=== PATIENT | male | born 1975 | race Caucasian/White ===

== ENCOUNTER → 2021-10-16 14:37 | Outpatient (CLI) | payer OTHER, SELFPAY ==
--- NOTE | ~2021-10-16 | CT_ITS ---
EXAMINATION: CT abdomen pelvis wo con DATE: 10/16/2021 14:51 INDICATION: Hematuria; visible hematuria after running. TECHNIQUE: Computed tomography (CT) of the abdomen and pelvis was performed without intravenous contr ast. Automated exposure control and iterative reconstruction technique were employed. Exam dose: 453 .29 mGy-cm total exam DLP. COMPARISON: None. FINDINGS: The lung bases are clear. Fat-containing foramen of Bochdalek hernia on the right. Normal heart size. No pericardial or pleural effusion. Very small sliding hiatal hernia. The gallbladder is contracted. No hepatic, splenic, pancreatic or adrenal space-occupying mass lesion is evident. Multiple bilateral renal calculi. There are at least 2 prominent right renal pelvic calculi, measurin g up to 5.2 x 7.8 and 8 x 13 mm. There is moderately prominent right hydronephrosis as a result. Prostate enlargement and calcifications. The urinary bladder is unremarkable. Normal caliber of the abdominal aorta. No intraperitoneal or retroperitoneal or pelvic mass lesion or adenopathy or ascites. There is a prominent of fecal material throughout the rectum and colon. No bowel obstruction or intra peritoneal free air. The appendix appears normal. Prominent degenerative disc disease at L5-S1. Degenerative changes and Schmorl's nodes of the lower t horacic spine. No suspicious osteolytic or osteoblastic lesions are noted. IMPRESSION: Prominent right renal pelvic calculi and moderately prominent right hydronephrosis as a result Prominent bilateral renal nephrolithiasis Reviewed, dictated and finalized at [facility]. Reviewed, dictated and finalized at location A. IMPRESSION: Prominent right renal pelvic calculi and moderately prominent righ t hydronephrosis as a result Prominent bilateral renal nephrolithiasis
== END ==
PROVIDERS: PCP Family Medicine; Visit Provider Family Medicine
DX: R31.9 Hematuria, unspecified (principal); N20.0 Calculus of kidney; N13.30 Unspecified hydronephrosis
CPT/HCPCS: 74176

== ENCOUNTER 2021-10-29 12:01 | Outpatient (CLI) | payer OTHER, SELFPAY ==
--- NOTE | ~2021-10-29 | XR_ITS ---
XR abdomen/kub 1V 10/29/2021 12:23 Indication: Renal stones Procedure: KUB Comparison: No prior studies for comparison. Findings: There are multiple bilateral renal stones. Kidneys are obscured by overlying bowel content. Moderate colonic fecal loading. There are pelvic phleboliths. Nonobstructive bowel gas pattern. No a cute osseous abnormality. Impression: 1: Bilateral nephrolithiasis. Reviewed, dictated and finalized at location A. Impression: 1: Bilateral nephrolithiasis.
== END 2021-10-29 12:02 | disposition home or self-care (01) ==
PROVIDERS: PCP Family Medicine; Visit Provider Urology
DX: N20.0 Calculus of kidney (principal)
CPT/HCPCS: 74018

== ENCOUNTER 2021-10-31 11:16 | Outpatient (CLI) | payer OTHER, SELFPAY ==
--- NOTE | ~2021-10-31 | XR_ITS ---
XR abdomen/kub 1V 10/31/2021 11:40 Indication: Calcium renal stones Procedure: KUB Comparison: 10/29/2021 Findings: There are multiple bilateral renal stones. Bowel gas pattern is nonobstructive. There are p elvic phleboliths. Nonobstructive bowel gas pattern. Lung bases are unremarkable. Impression: 1: Bilateral nephrolithiasis, largest likely in the right renal pelvis measuring 1 cm. Reviewed, dictated and finalized at location A. Impression: 1: Bilateral nephrolithiasis, largest likely in the right renal pelvis measurin g 1 cm.
== END 2021-10-31 11:17 | disposition home or self-care (01) ==
PROVIDERS: PCP Family Medicine; Visit Provider Urology
DX: N20.0 Calculus of kidney (principal)
CPT/HCPCS: 74018

== ENCOUNTER 2021-11-03 13:20 | Outpatient (CLI) | payer OTHER, SELFPAY ==
[2021-11-03 14:23] LABS: Partial Thromboplastin Time 26.4 SECONDS (22.3-36.8); Prothrombin Time 12.6 Seconds (11.1-14.7)
== END 2021-11-03 13:21 | disposition home or self-care (01) ==
LOC: ANHSURGERY 13:27
PROVIDERS: PCP Family Medicine; Visit Provider Urology
DX: Z01.812 Encounter for preprocedural laboratory examination (principal); N20.0 Calculus of kidney
CPT/HCPCS: 36415; 85610; 85730; 87086

== ENCOUNTER 2021-11-06 01:15 | Day surgery (SDC) | payer OTHER, SELFPAY ==
[2021-11-02 15:08] VITALS: BMI 23.7
--- NOTE | 2021-11-02 15:21 | PC.NURSE ---
Report to the Outpatient Waiting Room, entrance under the green pavilion located off [facility], at time 11:30 on date 11/06/21. OR Time: 1:30. Time changes happen often and if your time is changed the preop area will call you the afternoon before. - You and your visitor will be asked to self-screen and do not enter if you have any COVID symptoms. - Only one visitor and NO children visitors are allowed at this time. - The patient visitor is requested to leave or wait in car when not with patient due to restrictions. - A mask is required within the hospital. Patients may have clear liquids (water, carbonated beverages, clear teas, apple juice) until 3 hours prior to surgery (10:30) with a maximum of 20 ounces. - No food from midnight until time of surgery Take the following medications with a SIP of water the morning of surgery: ESCITALOPRAM Medications to discontinue per physician: VITAMINS/SUPPLEMENTS Date to take last dose: 11/02/21 Please no make-up, nail comoran, hairspray, perfume, deodorant, or body powder the day of surgery. No jewelry (including any body piercings) or valuables the day of surgery, leave them at home. Please take a shower or bath the night before, or the morning of, surgery with an antibacterial soap. Wear comfortable, loose fitting clothing. - Jewelry must be removed prior to entering the operating room. Rings and piercings that are not removed may be cut off. - The hospital will not accept responsibility for valuables. - Please leave all valuables, including medications, at home the day of surgery. If you are going home after surgery, a licensed seasonal driver must drive you home. - NO public transportation without another adult. - We recommend that an adult stay with you for 24 hours following discharge. - We also recommend that you do not drive, make important decision, drink alcoholic beverages, or take any drugs that were not prescribed by your health care provider for at least 24 hours after your discharge time. Follow any additional instructions given to you from your surgeon. If you or anyone in your household have experienced Covid symptoms in the past week, please notify your surgeon or the nurse liaison at the phone number below for possible testing. Telephone instructions given to PT - RAYO AVELAR and asked if any additional questions and then verbalized understanding. Patient advised to call surgeon office or pre surgery nurse liaison [phone] if any additional questions.
--- NOTE | 2021-11-05 15:35 | P.PNAN_ITS ---
Anes - Initial Pre Proc Eval Procedure: Operation Date: 11/06/21 12:30 Proposed Procedures p Right Extracorporeal Shock Wave Lithotripsy, - Westley Restrepo MD s Cystoscopy, Right Retrograde Pyelogram, Right Stent Placement - Westley Restrepo MD Date/Time: 11/05/21 15:35 Surgeon: Westley Restrepo MD Pre Op Diagnosis: hematuria, right UPJ calculus Patient Data Age: 46 Gender: M Height: 1.83 m Weight: 79.38 kg Allergies Allergy/AdvReac Type Severity Reaction Status Date / Time No Known Allergies Allergy Verified 11/02/21 15:07 Home Medications Medication Instructions Recorded Confirmed Type Lactobacillus rhamnosus GG 20 20 cell PO DAILY 10/06/21 11/02/21 History billion cell capsule (Probiotic Digestive Care) omega-3 fatty acids-fish oil 360 1 cap PO DAILY 10/06/21 11/02/21 History mg-1,200 mg capsule (Fish Oil) escitalopram oxalate 20 mg tablet 20 mg PO DAILY #30 tabs 11/02/21 11/02/21 Rx Patient hx anesthesia problems: none Family hx anesthesia problems: none Results Review: All pre-operative results and documents have been reviewed as part of the pre- operative evaluation. [facility] Past Medical History Medical History (Updated 10/16/21 @ 17:13 by Nicki Kapoor NP) Anemia Anxiety History of blood donation Nephrolithiasis Tibia/fibula fracture, shaft Surgical History Surgical History S/P ORIF (open reduction internal fixation) fracture Family History Family History Father Hypertension Depression Anxiety Mother Anxiety Depression Thyroid disorder Social History Social History Social History: Smoking status: Never smoker Second hand tobacco smoke exposure: No Alcohol intake: never Substance use: never Substance use type: does not use Living arrangements: with 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 Gender identity (if verbalized by the patient): Male Sexual Orientation (if Verbalized by the Patient): Straight or Heterosexual Spiritual care concerns: No Anes - Eval Final PreProcedure Day of Procedure 11/05/21 15:35 Patient weight: overweight Heart: regular rate and rhythm Lungs: clear to auscultation and normal air movement Airway: Mallampati scale class II Neurological: alert and oriented Last oral intake: >/= 8 hours ASA classification: II Emergent: no Anesthetic plan: proceed Anesthesia type and monitoring: general LMA Results Review: All pre-operative results and documents have been reviewed as part of the pre- operative evaluation. Informed Consent: The patient's anesthetic plan and its attendant risks and benefits were discussed with the patient/family/POA. Questions were solicited and answers provided to the satisfaction of the patient/family/POA.
[2021-11-06] VITALS (7 sets, daily range): BP systolic 97–154; BP diastolic 48–78; PULSE 48–72; RESP 11–18; TEMP 36.2–36.9; O2SAT 100
--- NOTE | ~2021-11-06 | XR_ITS ---
EXAMINATION: XR abdomen/kub 1V INDICATION: Right-sided lithotripsy TECHNIQUE: Supine views of the abdomen were obtained on 2 radiographs. COMPARISON: 10/31/2021 FINDINGS: There is a 10 mm stone projecting in the expected location of the right renal pelvis. Stone s measuring 11 mm and 10 mm are present in the right kidney. There are at least four stones of the le ft kidney which measure up to 6 mm. There are phleboliths of the pelvis. The bowel gas pattern is nor mal. The visualized lung bases are clear. IMPRESSION: 1. 10 mm stone projecting in the expected location of the right renal pelvis. 2. Bilateral nephrolithiasis. Reviewed, dictated and finalized at location A.
[2021-11-06] MEDS: LACTATED RINGERS 1,000 ML 30 ML IV CONT ×2 (10:38→12:40)
--- NOTE | 2021-11-06 11:04 | WPDHPUPDATE1 ---
History and Physical Update Update Date/Time: 11/06/21 11:04 History and Physical has been reviewed, including an updated exam of the patient. There are NO changes in the patient's condition. Risks, benefits, and alternatives have been discussed and questions answered. Patient agrees to proceed with procedure. Proceed with cystoscopy, right retrograde pyelogram, right ureteral stent placement, right renal lithotripsy
[2021-11-06] MEDS: ceFAZolin 2 GM/D5W 50 ML 2 GM/50 ML BAG IVPB (11:27)
--- NOTE | 2021-11-06 12:37 | W.PM.PROC2 ---
Procedure Note - Detailed Date of Procedure 11/06/21 Pre-op Diagnosis hematuria, right UPJ calculus Post-op Diagnosis Same Procedure Performed Cystoscopy, right retrograde pyelogram, right ureteral stent placement 4.8 Guatemalan contour, ESWL right renal UPJ calculus Surgeon Westley Restrepo MD Anesthesia General Description of Procedure Patient was taken to the operative suite correctly identified. Once anesthesia was obtained he was prepped draped usual sterile fashion. Sixteen Guatemalan flexible scope inserted into the urethra. There are no urethral strictures. The bladder is inspected there was no tumors noted. The right ureteral orifice was cannulated with a guidewire. It was difficult to get this wire past the stone and thus we repositioned the patient and did a lithotripsy of the stone. The stone was localized in both planes. Two thousand five hundred shocks were given to the stone. The wire was then advanced into the renal pelvis and a pyelogram was confirmed to confirm its placement. 4.8 Guatemalan contour stent was then placed with the proximal end in the renal pelvis distal in the bladder. 2% viscous lidocaine was inserted into the urethra patient is taken recovery room stable condition. He will follow-up in 7-10 days with KUB. Estimated Blood Loss 0 Drains Yes Packing No Pathology None sent Complications No immediate complications Condition Stable Disposition PACU
== END 2021-11-06 14:20 | disposition home or self-care (01) ==
PROVIDERS: PCP Family Medicine; Visit Provider Urology
PROC: (CPT 50590; principal; 2021-11-06 12:30)
PROC: (CPT 52352; 2021-11-06 12:30)
DX: N20.1 Calculus of ureter (principal); R31.9 Hematuria, unspecified
CPT/HCPCS: 52356; 74018; A9270; C1769; C2617; J0690; J1100; J2250; J2405; J2704; J3010; J7030; J7120

== ENCOUNTER 2021-11-21 08:35 | Outpatient (CLI) | payer OTHER, SELFPAY ==
--- NOTE | ~2021-11-21 | XR_ITS ---
EXAM: XR abdomen/kub 1V DATE: 11/21/2021 08:56 HISTORY: calcium kidney stone . COMPARISON: 11/06/2021. FINDINGS: Right ureteral stent in good position. Clear lung bases. Normal bowel gas pattern. No orga nomegaly. 10 mm right renal pelvis stone likely projects over the midline bladder. Remaining left and right nephroliths are grossly unchanged. Multiple. Regional bones and soft tissues normal for age. IMPRESSION: The right renal pelvis stone appears to have passed into the bladder. Reviewed, dictated and finalized at location K. IMPRESSION: The right renal pelvis stone appears to have passed into the bladde r.
== END 2021-11-21 08:36 | disposition home or self-care (01) ==
PROVIDERS: PCP Family Medicine; Visit Provider Urology
DX: N20.0 Calculus of kidney (principal)
CPT/HCPCS: 74018

== ENCOUNTER 2021-12-02 07:59 | Outpatient (CLI) | payer OTHER, SELFPAY ==
[2021-12-02 09:23] LABS: Prothrombin Time 12.7 Seconds (11.1-14.7)
[2021-12-02 09:24] LABS: Partial Thromboplastin Time 26.8 SECONDS (22.3-36.8)
== END 2021-12-02 08:00 | disposition home or self-care (01) ==
LOC: ANHSURGERY 08:03
PROVIDERS: PCP Family Medicine; Visit Provider Urology
DX: N20.0 Calculus of kidney (principal); Z01.818 Encounter for other preprocedural examination
CPT/HCPCS: 36415; 85610; 85730; 87086

== ENCOUNTER 2021-12-04 01:05 | Day surgery (SDC) | payer OTHER, SELFPAY ==
[2021-12-01 12:28] VITALS: BMI 23.6
--- NOTE | 2021-12-01 12:29 | PC.NURSE ---
Report to the Outpatient Waiting Room, entrance under the green pavilion located off [facility], at time 7:00 on date 12/04/21. Planned Procedure Time: 9:00. Time changes happen often and if your time is changed the preop area will call you the afternoon before. - You and your visitor will be asked to self-screen and do not enter if you have any COVID symptoms. - We encourage only one visitor and NO visitors under age 16 are allowed at this time. Your visitor will receive communication by the phone number that is given day of service. - The patient visitor is requested to social distance or may leave the building when not with patient due to restrictions. - A mask is OPTIONAL within the hospital. Patients may have clear liquids (water, carbonated beverages, clear teas, apple juice) until 3 hours prior to surgery (6:00) with a maximum of 20 ounces. - No food from midnight until time of surgery Take the following medications with a SIP of water the morning of surgery: ESCITALOPRAM Medications to discontinue per physician: VITAMINS/SUPPLEMENTS Date to take last dose: 12/01/21 Please no make-up, nail kiswahili, hairspray, perfume, deodorant, or body powder the day of surgery. No jewelry (including any body piercings) or valuables the day of surgery, leave them at home. Please take a shower or bath the night before, or the morning of, surgery with an antibacterial soap. Wear comfortable, loose fitting clothing. - Jewelry must be removed prior to entering the operating room. Rings and piercings that are not removed may be cut off. - The hospital will not accept responsibility for valuables. - Please leave all valuables, including medications, at home the day of surgery. If you are going home after surgery, a licensed bellman driver must drive you home. - NO public transportation without another adult. - We recommend that an adult stay with you for 24 hours following discharge. - We also recommend that you do not drive, make important decision, drink alcoholic beverages, or take any drugs that were not prescribed by your health care provider for at least 24 hours after your discharge time. Follow any additional instructions given to you from your surgeon. If you or anyone in your household have experienced Covid symptoms in the past week, please notify your surgeon or the nurse liaison at the phone number below for possible testing. Telephone instructions given to PT Vanesa AVELAR and asked if any additional questions and then verbalized understanding. Patient advised to call surgeon office or pre surgery nurse liaison [phone] if any additional questions.
--- NOTE | ~2021-12-04 | XR_ITS ---
EXAMINATION: XR abdomen/kub 1V DATE: 12/04/2021 07:08 INDICATION: Right-sided nephrolithiasis for planned lithotripsy. TECHNIQUE: A supine view of the abdomen on 2 radiographs was obtained. COMPARISON: 11/21/2021 FINDINGS: Unchanged right internal ureteral stent with formed loop projecting over the bladder and upper pole c [place] of the right kidney. Clusters of several stones measuring up to 7 mm projecting over the lower p ole of the right kidney. There are also several stones measuring up to 6 mm projecting over the upper , mid and lower left kidney. A few phleboliths in the pelvis. No stones seen along the course of the ureters. Normal bowel gas pattern. Lung bases are clear. Heart size is normal. IMPRESSION: 1. Bilateral nephrolithiasis with right internal ureteral stents in expected position. Reviewed, dictated and finalized at location A. IMPRESSION: 1. Bilateral nephrolithiasis with right internal ureteral stents in expected po sition.
--- NOTE | 2021-12-04 07:25 | WPDHPUPDATE1 ---
History and Physical Update Update Date/Time: 12/04/21 07:25 History and Physical has been reviewed, including an updated exam of the patient. There are NO changes in the patient's condition. Risks, benefits, and alternatives have been discussed and questions answered. Patient agrees to proceed with procedure. Proceed with eswl of right renal calculus, possible cysto with stent exchange
--- NOTE | 2021-12-04 07:30 | WPDHPUPDATE1 ---
History and Physical Update Update Date/Time: 12/04/21 07:30 History and Physical has been reviewed, including an updated exam of the patient. There are NO changes in the patient's condition. Risks, benefits, and alternatives have been discussed and questions answered. Patient agrees to proceed with procedure. eswl right renal calculus, possible cysto, stent removal , stent exchange.
--- NOTE | 2021-12-04 07:40 | WPDANESEPPF ---
Anes - Initial Pre Proc Eval Procedure: Operation Date: 12/04/21 09:00 Proposed Procedures p Right Extracorporeal Shock Wave Lithotripsy, - Westley Restrepo MD s Cystoscopy, Right Ureteral Stent Removal, with Possible Right Retrograde Pyelogram, Stent Exchange - Westley Restrepo MD Date/Time: 12/04/21 07:40 Surgeon: Westley Restrepo MD Pre Op Diagnosis: kidney stones Patient Data Age: 46 Gender: M Height: 1.83 m Weight: 79 kg Allergies Allergy/AdvReac Type Severity Reaction Status Date / Time No Known Allergies Allergy Verified 12/01/21 12:27 Home Medications Medication Instructions Recorded Confirmed Type Lactobacillus rhamnosus GG 20 20 cell PO DAILY 10/06/21 12/01/21 History billion cell capsule (Probiotic Digestive Care) omega-3 fatty acids-fish oil 360 1 cap PO DAILY 10/06/21 12/01/21 History mg-1,200 mg capsule (Fish Oil) escitalopram oxalate 20 mg tablet 20 mg PO DAILY #30 tabs 11/02/21 12/01/21 Rx Patient hx anesthesia problems: none Family hx anesthesia problems: none Results Review: All pre-operative results and documents have been reviewed as part of the pre-operative evaluation. 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 arrangements: with 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 Gender identity (if verbalized by the patient): Male Sexual Orientation (if Verbalized by the Patient): Straight or Heterosexual Spiritual care concerns: No Anes - Eval Final PreProcedure Day of Procedure 12/04/21 07:40 Patient weight: normal Heart: regular rate and rhythm Lungs: clear to auscultation Airway: Mallampati scale class II Neurological: alert and oriented Last oral intake: >/= 8 hours ASA classification: II Emergent: no Anesthetic plan: proceed Anesthesia type and monitoring: general LMA and standard monitoring Results Review: All pre-operative results and documents have been reviewed as part of the pre-operative evaluation. Informed Consent: The patient's anesthetic plan and its attendant risks and benefits were discussed with the patient/family/POA. Questions were solicited and answers provided to the satisfaction of the patient/family/POA.
[2021-12-04 07:44] VITALS: BP 138/63; PULSE 68; RESP 14; TEMP 36.6; O2SAT 100
[2021-12-04] MEDS: LACTATED RINGERS 1,000 ML 30 ML IV CONT ×2 (07:48→09:41)
[2021-12-04] MEDS: ceFAZolin 2 GM/D5W 50 ML 2 GM/50 ML BAG IVPB (08:33)
[2021-12-04] MEDS: LIDOCAINE HCL 2% GEL UROJET 10 ML PKG MUCOUS MEM (09:25)
--- NOTE | 2021-12-04 09:33 | P.OP_ITS ---
Procedure Note - Detailed Date of Procedure 12/04/21 Pre-op Diagnosis kidney stones Post-op Diagnosis Same Procedure Performed Cystoscopy, right ureteral stent exchange, ESWL right renal calculi Surgeon Westley Restrepo MD Anesthesia General Description of Procedure Patient is taken to the operative suite correctly identified. Once anesthesia was obtained he was prepped draped usual sterile fashion. Sixteen Tunisian flexible scope was inserted the meatus. It was introduced into the bladder without difficulty. The stent was grasped brought out the meatus. A guidewire was placed through the stent. 4.8 Tunisian contour stent was then placed with the proximal end up in the upper pole and the distal in the bladder. 2% viscous lidocaine was inserted urethra. Patient was repositioned. Two thousand five hundred shocks were given to the renal calculi. Tolerated procedure well was taken recovery stable condition. He will follow-up in 7-10 days with KUB. Estimated Blood Loss 0 Drains Yes Packing No Pathology None sent Complications No immediate complications Condition Stable Disposition PACU
[2021-12-04 09:41] VITALS: BP 101/61; PULSE 71; RESP 9; TEMP 36.2; O2SAT 98
[2021-12-04 09:55] VITALS: BP 129/74; PULSE 66; RESP 7; O2SAT 100
[2021-12-04 10:10] VITALS: BP 126/73; PULSE 76; RESP 17; O2SAT 100
[2021-12-04 10:19] VITALS: BP 127/86; BP 134/71; PULSE 66; PULSE 72; RESP 12; O2SAT 100
[2021-12-04 10:45] VITALS: BP 133/67; PULSE 64; RESP 12
== END 2021-12-04 11:08 | disposition home or self-care (01) ==
PROVIDERS: PCP Family Medicine; Visit Provider Urology
PROC: (CPT 50590; principal; 2021-12-04 09:00)
PROC: (CPT 52352; 2021-12-04 09:00)
DX: N20.0 Calculus of kidney (principal); F41.9 Anxiety disorder, unspecified
CPT/HCPCS: 52332; 50590; 74018; A9270; C1769; C2617; J0690; J1100; J2250; J2405; J2704; J3010; J7120

== ENCOUNTER 2021-12-19 09:01 | Outpatient (CLI) | payer OTHER, SELFPAY ==
--- NOTE | ~2021-12-19 | XR_ITS ---
XR abdomen/kub 1V DATE: 12/19/2021 09:22 INDICATION: Calcium kidney stone TECHNIQUE: AP projection, 2 views COMPARISON: 11/26/2021 KUB FINDINGS: Right internal urinary stent is present, the proximal pigtail overlying the mid right kidne y as opposed to the upper pole collecting system on 12/04/2021. The distal pigtail overlies the right side of the urinary bladder. Numerous bilateral kidney stones are noted. No definite ureteral calcified stones are identified. Nonspecific bowel gas pattern without evidence of obstruction. The psoas shadows are intact. IMPRESSION: Right internal urinary stent Bilateral nephrolithiasis Reviewed, dictated and finalized at Location A. Reviewed, dictated and finalized at location A. [employer]TENANCE
== END 2021-12-19 09:02 | disposition home or self-care (01) ==
LOC: ANHIMG 09:03
PROVIDERS: PCP Family Medicine; Visit Provider Urology
DX: N20.0 Calculus of kidney (principal); Z96.0 Presence of urogenital implants
CPT/HCPCS: 74018

== ENCOUNTER → 2022-01-04 09:32 | Outpatient (CLI) | payer OTHER, SELFPAY ==
--- NOTE | ~2022-01-04 | CT_ITS ---
EXAMINATION: CT abdomen pelvis wo con DATE: 01/04/2022 09:53 INDICATION: Renal stones TECHNIQUE: Computed tomography (CT) of the abdomen and pelvis was performed without intravenous contr ast. The dose-length product was 214.84 mGy-cm. Automated exposure control and iterative reconstructi on technique were employed. COMPARISON: CT dated 10/16/2021. FINDINGS: Lung bases are unremarkable. Heart size is normal. No significant pleural or pericardial ef fusion. No significant vascular abnormality. No lymphadenopathy. There is a right internal ureteral s tent in expected position. There are multiple bilateral renal stones. No significant hydronephrosis. Bladder is unremarkable. There are pelvic phleboliths. There are 2 small hypodensities of the liver measuring 6 mm or less. These are too small to character ize, although statistically likely benign in the absence of known malignancy. The spleen, pancreas, a drenal glands are unremarkable. Gallbladder is contracted. Nonobstructive bowel pattern. Moderate col onic fecal loading. No suspicious lytic or blastic lesions. There is mild-moderate lower thoracic and lower lumbar spondylosis. IMPRESSION: 1. Nonobstructing bilateral nephrolithiasis. Right internal ureteral stent in expected position. No h ydronephrosis. Reviewed, dictated and finalized at location A. R FEEDER IMPRESSION: 1. Nonobstructing bilateral nephrolithiasis. Right internal ureteral stent in e xpected position. No hydronephrosis.
== END ==
PROVIDERS: PCP Family Medicine; Visit Provider Urology
DX: N20.0 Calculus of kidney (principal)
CPT/HCPCS: 74176

== ENCOUNTER 2022-01-11 00:24 | Day surgery (SDC) | payer OTHER, SELFPAY ==
[2021-12-25 13:38] VITALS: BMI 23.8
[2022-01-11 07:29] VITALS: BP 106/64; PULSE 60; RESP 18; TEMP 36.6; O2SAT 100
[2022-01-11] MEDS: LACTATED RINGERS 1,000 ML 150 ML IV CONT (07:41)
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
--- NOTE | 2022-01-11 08:09 | PM.HPGS ---
History of Present Illness History of Present Illness Consent: Risks, benefits, and alternatives have been discussed and questions answered. Patient agrees to proceed with procedure. Chief complaint: neoplasm screening Narrative: Sarath Thornton is a 46 year old male here for first screening colonoscopy Review of Systems Constitutional: Constitutional: Denies headache(s) and Denies weakness Eyes: Eyes: Denies blurry vision ENT: Reports Normal hearing present, Denies headache(s) and Denies neck pain Cardiovascular: Cardiovascular: Denies chest pain and Denies dyspnea Respiratory: Respiratory: Denies dyspnea Gastrointestinal: Gastrointestinal: Reports no additional gastrointestinal complaints Genitourinary: Genitourinary: Denies dysuria Musculoskeletal: Musculoskeletal: Denies neck pain Integumentary/Breasts: Skin/Breast: Denies dry skin Neurologic: Reports Normal hearing present, Denies headache(s) and Denies weakness Psychiatric: Psychiatric: Denies anxiety Endocrine: Endocrine: Denies change in body appearance Hematologic/Lymphatic: Hematologic/Lymphatic: Denies easy bleeding Allergic/Immunologic: Allergic/Immunologic: Denies urticaria PMF Past Medical History Medical History Anemia Anxiety History of blood donation Nephrolithiasis Tibia/fibula fracture, shaft Surgical History Surgical History (Updated 01/11/22 @ 08:02 by Sang Berg MD) H/O lithotripsy S/P ORIF (open reduction internal fixation) fracture Family History Family History Father Hypertension Depression Anxiety Mother Anxiety Depression Thyroid disorder Social History Social History Social History: Smoking status: Never smoker Second hand tobacco smoke exposure: No Alcohol intake: former 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 Substance use: never Substance use type: does not use 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 arrangements: with 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 Gender identity (if verbalized by the patient): Male Sexual Orientation (if Verbalized by the Patient): Straight or Heterosexual Spiritual care concerns: No Meds Home Medications and Allergies Home Medications Medication Instructions Recorded Confirmed Type Lactobacillus rhamnosus GG 20 20 cell PO DAILY 10/06/21 01/06/22 History billion cell capsule (Probiotic Digestive Care) omega-3 fatty acids-fish oil 360 1 cap PO DAILY 10/06/21 01/06/22 History mg-1,200 mg capsule (Fish Oil) escitalopram oxalate 20 mg tablet 20 mg PO DAILY #30 tabs 11/02/21 01/06/22 Rx hydrochlorothiazide 25 mg tablet 25 mg PO DAILY 01/06/22 01/06/22 History Allergies Allergy/AdvReac Type Severity Reaction Status Date / Time No Known Allergies Allergy Verified 01/11/22 07:28 Vital Signs Vital Signs - 24 hr 01/11/22 07:29 Temperature 98 F Pulse Rate 60 Respiratory Rate 18 Blood Pressure 106/64 Pulse Oximetry 100 Oxygen Delivery Room Air Exam Const: General: comfortable and no acute distress HENMT: Face/Nose/Sinus: Normal nares present Eyes: General: appearance normal, both eyes and all related structures Neck: Neck: no JVD Resp: Auscultation: clear to auscultation bilaterally Cardio: Rate: regular rate Rhythm: regular rhythm GI: Inspection: non-distended GI Palp: Yes Soft to palpation Skin: General skin exam: normal color Neuro: General: gait normal Speech: normal speech Extrem: General: normal to inspection Psych: Mental Status: mental status grossly normal Assessment and Plan Assessment and plan (1) Screening for colon cancer: Code(s): Z12.11 - Encounter for screening for malignant neoplasm of colon Status: Acute Assessment and Plan: colonoscopy
[2022-01-11 08:34] VITALS: BP 103/63; PULSE 56; RESP 12; O2SAT 100
[2022-01-11 08:44] VITALS: BP 112/72; PULSE 54; RESP 21; O2SAT 100
[2022-01-11 08:54] VITALS: BP 109/68; PULSE 55; RESP 20; O2SAT 100
== END 2022-01-11 09:00 | disposition home or self-care (01) ==
PROVIDERS: PCP Family Medicine; Visit Provider Internal Medicine Gastroenterology
PROC: 0DJD8ZZ Inspection of Lower Intestinal Tract, Via Natural or Artificial Opening Endoscopic (ICD-10-PCS; CPT 45378; principal; 2022-01-11 08:30)
DX: Z12.11 Encounter for screening for malignant neoplasm of colon (principal); D12.0 Benign neoplasm of cecum; K64.8 Other hemorrhoids; F41.9 Anxiety disorder, unspecified
CPT/HCPCS: 45385; 88305; J2704; J7120

== ENCOUNTER 2022-02-20 07:26 | Outpatient (CLI) | payer OTHER, SELFPAY ==
--- NOTE | ~2022-02-20 | XR_ITS ---
XR abdomen/kub 1V DATE: 02/20/2022 07:40 INDICATION: Calcium kidney stone follow-up TECHNIQUE: AP projection, 2 views COMPARISON: 12/27/2021 CT abdomen pelvis 12/19/2021 KUB FINDINGS: Removal right internal urinary stent since 12/27/2021. Bilateral renal calcifications, left greater than right, consistent with bilateral nephrolithiasis. N o calcified ureteral calculus is evident. Nonspecific bowel gas pattern without evidence of obstruction. Included skeletal structures are unrem arkable. IMPRESSION: Nephrolithiasis, left greater than right Removal of right internal urinary stent since 01/04/2022 Reviewed, dictated and finalized at Location [facility]. Reviewed, dictated and finalized at location A. MAN
== END 2022-02-20 07:27 | disposition home or self-care (01) ==
LOC: ANHIMG 07:29
PROVIDERS: PCP Family Medicine; Visit Provider Urology
DX: N20.0 Calculus of kidney (principal)
CPT/HCPCS: 74018

== ENCOUNTER 2022-07-19 10:02 | Outpatient (CLI) | payer OTHER, SELFPAY ==
--- NOTE | ~2022-07-19 | XR_ITS ---
EXAMINATION: XR abdomen/kub 1V INDICATION: Calcium kidney stones TECHNIQUE: Supine views of the abdomen were obtained on 2 radiographs. COMPARISON: 02/20/2022 FINDINGS: There are multiple stones of the left kidney which measure up to 7 mm and appear stable. Dominguez wel contents project over the kidneys limiting sensitivity for renal stones. Previously described rig ht kidney stones are not definitely seen. There are phleboliths of the pelvis. A large volume of colo daniela stool is present. IMPRESSION: 1. Left nephrolithiasis. Reviewed, dictated and finalized at location A. IMPRESSION: 1. Left nephrolithiasis.
== END 2022-07-19 10:03 | disposition home or self-care (01) ==
LOC: ANHIMG 10:05
PROVIDERS: PCP Family Medicine; Visit Provider Urology
DX: N20.0 Calculus of kidney (principal)
CPT/HCPCS: 74018

== ENCOUNTER 2023-01-17 06:53 | Outpatient (CLI) | payer OTHER, SELFPAY ==
--- NOTE | ~2023-01-17 | XR_ITS ---
Supine and upright views of the abdomen Clinical history: Renal stone COMPARISON: 07/19/2022 Findings: Bowel gas pattern is nonspecific. No evidence for obstruction or free air. Multiple left re nal stones are probably similar to prior exam. Probable very small right lower pole renal stone. Ques tionable mid right ureteral stone projecting over the right L3 transverse process. Osseous structures are intact. Impression: Left nephrolithiasis, probably unchanged. Suspected tiny right renal stone. Questionable mid right ureteral stone. Correlate with patient's symptomatology. Reviewed, dictated and finalized at location M. ING ASSOCIATE Impression: Left nephrolithiasis, probably unchanged. Suspected tiny right renal stone. Questionable mid right ureteral stone. Correlate with patient's symptomatology.
== END 2023-01-17 06:54 | disposition home or self-care (01) ==
LOC: ANHIMG 06:55
PROVIDERS: PCP Family Medicine; Visit Provider Urology
DX: N20.0 Calculus of kidney (principal)
CPT/HCPCS: 74018

== ENCOUNTER 2023-12-19 08:05 | Outpatient (CLI) | payer OTHER, SELFPAY ==
--- NOTE | ~2023-12-19 | XR_ITS ---
XR abdomen/kub 1V Ordering provider: Avinash Mitchell MD History: . N20.0 - Calculus of kidney FU . Comparison: A FINDINGS: BOWEL: Nonobstructive bowel gas pattern. Distended stomach with gases. ORGANOMEGALY: None. SIGNIFICANT PATHOLOGIC CALCIFICATIONS: Multiple stones in the left kidney. OTHER: No free air is seen under the diaphragm. IMPRESSION: NO ACUTE ABDOMINAL FINDINGS. Multiple stones in the left kidney. Reviewed, dictated and finalized at location A. CTOR WEIGHTS AND MEASURES
== END 2023-12-19 08:06 | disposition home or self-care (01) ==
PROVIDERS: PCP Family Medicine; Visit Provider Internal Medicine Nephrology
DX: N20.0 Calculus of kidney (principal)
CPT/HCPCS: 74018

== ENCOUNTER 2024-05-15 13:21 | Outpatient (CLI) | payer OTHER, SELFPAY ==
--- NOTE | ~2024-05-15 | XR_ITS ---
EXAM/ PROCEDURE: XR shoulder LT min 2V - 05/15/2024 13:32 CDT HISTORY: 49 years old Male with M25.512 - Pain in left shoulder, NKI COMPARISON: None available TECHNIQUE: Four view(s) FINDINGS/ IMPRESSION: There are no fractures or dislocations.Joint space narrowing, subchondral sclerosis, subchondral cyst formation and osteophyte formation, compatible with mild osteoarthritis. Reviewed, dictated and finalized at location A.
--- OUTSIDE RECORDS SUMMARY | 2024-05-15 14:44 | XMS_ITS | Clinical Summary ---
Author Organization [facility] Address [address] [place] [id number] Care Team Providers Care Metal Tester Name Role Phone Bethany Evans MD Primary Care Provider [phone]- [phone] Social History Tobacco Use Types Packs/Day Years Used Date Smoking Tobacco: Never Assessed Sex and Gender Information Value Date Recorded Sex Assigned at Not on file Legal Sex Male 8:45 AM CDT Gender Identity Not on file Sexual Orientation Not on file Plan of Treatment Health Maintenance Due Date Last Done Comments Colorectal Cancer Screening Colonoscopy (10 Years) 1974 Annual Physical 1977 Hepatitis C 1992 Hepatitis B Vaccines (1 of 3 - 19+ 3-dose series) 1993 COVID-19 Vaccine ( season) 2023 10/17/2021, 12/21/2020, 05/26/2020, Additional history exists Zoster Vaccines (1 of 2) 2024 DTaP, Tdap and Td Vaccines (2 - Td or Tdap) 07/23/2030 07/23/2020 Meningococcal B Vaccine Aged Out No l onger eligible based on patient's age to complete this topic Meningococcal Vaccine Aged Out No maryse ifeanyi eligible based on patient's age to complete this topic Pneumococcal Vaccine: Pediatrics (0 to 5 Years) and At-Risk Patients (6 to 64 Years) Aged Out No longer eligible based on patient's age to complete this topic RSV Immunizations Under 20 Months Aged Out No longer eligible based on patient's age to complete this topic Insurance Room n House Member Subscriber Plan / Payer (Ef fective 2021-Present) Name:Sarath Thornton Relation to Subscriber:Self Name:Sarath Thornton Payer ID:Not on file Group ID:Not on file Type:Not on file Address: [facility] [id number] [place] [id number] Care Teams Metal Tester Relationship Specialty Start Date End Date Bethany Evans MD [address] [facility] [address] [place] [address] PCP - General FAMILY PRACTICE 11/14/21
--- OUTSIDE RECORDS SUMMARY | 2024-05-15 14:44 | XMS_ITS | Clinical Summary ---
Author Organization [facility] Address [address] [place] [address] Phone Care Team Providers Care Stove Mounter Name Role Phone Bethany Evans MD Primary Care Provider +1- [phone] Allergies No known active allergies Medications Medication Sig Dispensed Refills Start Date End Date Status escitalopram (LEXAPRO) 20 MG tablet Take 20 mg by mouth 1 (one) time each day Active hydroCHLOROthiazide (HYDRODIURIL) 25 MG tablet Take 1 tablet (25 mg total) by mouth 1 (one) time each day 30 tablet 11 12/28/2021 Active Active Problems Problem Noted Date Diagnosed Date Calculus of kidney 12/13/2021 Immunizations Name Administration Dates Next Due Influenza TIV (IM) 11/21/2021,10/12/2019 MMR 07/23/2020 Tdap 07/23/2020 Social History Tobacco Use Types Packs/Day Years Used Date Smoking Tobacco: Never Smokeless Tobacco: Never Tobacco Cessation:Counseling Given: Not Answered Alcohol Use Standard Drinks/Week Comments Not Currently 0 (1 standard drink = 0.6 oz pur e alcohol) Sex and Gender Information Value Date Recorded Sex Assigned at Not on file Gender Identity Not on file Sexual Orientation Not on file Last Filed Vital Signs Vital Sign Reading Time Taken Comments Blood Pressure 124/70 12/07/2021 9:15 AM CDT Pulse 72 12/07/2021 9:15 AM CDT Temperature 36.6 C (97.8 F) 12/07/2021 9:15 AM CDT Respiratory Rate - - Oxygen Saturation - - Inhaled Oxygen Concentration - - Weight 81.2 kg (179 lb) 12/07/2021 9:15 AM CDT Height 182.9 cm (6') 12/07/2021 9:15 AM CDT Body Mass Index 24.28 12/07/2021 9:15 AM CDT Plan of Treatment Health Maintenance Due Date Last Done Comments Pneumococcal PPSV23 Highest Risk Adult (1 of 3 - PCV13) 1993 Influenza Vaccine (Season Ended) 2024 11/22/19, 10/12/2019 Care Teams Stove Mounter Relationship Specialty Start Date End Date Bethany Evans MD [address] [facility] [address] [facility] [address] [place] [id number] PCP - General Internal Medicine 11/09/21
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
== END 2024-05-15 13:22 | disposition home or self-care (01) ==
PROVIDERS: PCP Family Medicine; Visit Provider Physician Assistant
DX: M25.512 Pain in left shoulder (principal)
CPT/HCPCS: 73030

== ENCOUNTER 2024-08-17 07:41 | Outpatient (CLI) | payer OTHER, SELFPAY ==
--- NOTE | ~2024-08-17 | MR_ITS ---
EXAMINATION: MRI RT SHOULDER W/WO DATE: 10/27/09 12:58:00 INDICATION: Impingement syndrome at the left shoulder. Left elbow pain. TECHNIQUE: 1. Magnetic resonance imaging (MRI) of the left shoulder was performed without intravenous contrast. Sequences included axial PD-weighted FS FSE, coronal oblique PD-weighted FS FSE, coronal oblique T2-w eighted FS FSE, sagittal PD-weighted FS FSE, and sagittal T1-weighted SE. 2. MRI of the left elbow was performed without intravenous contrast. Sequences included axial, sagitt al and coronal PD-weighted FS FSE and PD-weighted FSE. COMPARISON: None. FINDINGS: Coracoacromial arch: The acromion undersurface is curved in morphology (type II). The coracoacromial ligament is normal. M oderate acromioclavicular osteoarthritis. Rotator cuff: Mild supraspinatus and infraspinatus tendinopathy with small partial-thickness articular sided tear m easuring 4 mm AP and 5 mm medial collateral at the footplate of the conjoined portion of the supraspi natus and infraspinatus tendons which involves approximately 50% cartilage thickness. The subscapular is and infraspinatus tendons are normal. Normal rotator cuff muscle bulk and signal. Biceps tendon, glenoid labrum and glenohumeral cartilage: Long head of the biceps tendon is normal. There is a tear at the 9:00-10:30 position of the glenoid l abrum with associated moderate size Labral cyst which extends 2.5 cm anteromedially from the tear into the spinoglenoid notch and measuri ng up to 11 x 10 mm in maximal transaxial dimensions. Partial-thickness cartilage loss involving grea ter than 50% the cartilage thickness and with mild chondral surface regularity along the central, pos terior and posterior superior glenoid. There is additional partial thickness chondral ulceration with deeper fissuring and mild subarticular edema-like signal change along the inferomedial aspect of the humeral head. Fluid: Physiologic amount of fluid in the glenohumeral joint and biceps tendon sheath. No loose osteochondr al bodies. No abnormal increased fluid in the subacromial/subdeltoid bursa to suggest bursitis. Bones: Heterotopic ossification versus chronic nonunited avulsion fracture at the short head biceps attachme nt to the tip of the coracoid process. No acute fracture. There is a likely benign 1.6 x 0.9 x 0.6 cm T2 hyperintense lesion with low signal intensity peripheral sclerotic rim with nonaggressive appeara nce which can be seen on radiograph dated 05/15/2024 with differential including bone cyst, enchondroma , fibrous dysplasia or aneurysmal bone cyst. There is mild subarticular edema-like signal change lillie g the lesser tuberosity footplate of the subscapularis tendon. Otherwise normal marrow signal with no edema, fracture or abnormal marrow replacing process. Left elbow: Osseous/other: Normal alignment. Normal marrow signal with no marrow edema, fracture, osteochondral lesion or abnor mal marrow replacing process. Tendons: Mild tendinopathy without tear at the lateral insertion of the distal triceps tendon. Additional mild tendinopathy without tear at the radial tubercle insertion of the long head biceps tendon also witho ut discrete tear. The brachialis tendon is normal. Common flexor tendon wad is normal. Mild tendinop athy without discrete tear at the common extensor tendon wad. There is mild cystic change and edema-l kumar signal change at the lateral epicondylar origin of the common extensor tendon wad. Ligaments: The medial and lateral collateral ligament complexes are normal. Cubital tunnel: Cubital tunnel is unremarkable with normal signal and caliber of the ulnar nerve. Fluid: Physiologic amount of fluid the elbow joint. IMPRESSION: 1. Mild supraspinatus and infraspinatus tendinopathy with very small partial-thickness articular side d tear involving 50% the tendon thickness at the greater tuberosity footplate. 2. Tear of the posterior to posterior superior glenoid labrum with associated para labral cyst extend ing into the spinoglenoid notch. No findings to suggest associated infraspinatus neuropathy due to im pingement. 3. Heterotopic ossicle versus chronic nonunited avulsion fracture fragment involving the olecranon in sertion of the short head biceps tendon. 4. Mild tendinopathy without discrete tears at the distal triceps tendon, biceps brachii tendon and a t the lateral epicondylar origin of the common extensor tendon wad. Reviewed, dictated and finalized at location A. IMPRESSION: 1. Mild supraspinatus and infraspinatus tendinopathy with very small partial-th ickness articular sided tear involving 50% the tendon thickness at the greater tuberosity footplate. 2. Tear of the posterior to posterior superior glenoid labrum with associated p nico labral cyst extending into the spinoglenoid notch. No findings to suggest a ssociated infraspinatus neuropathy due to impingement. 3. Heterotopic ossicle versus chronic nonunited avulsion fracture fragment invo lving the olecranon insertion of the short head biceps tendon. 4. Mild tendinopathy without discrete tears at the distal triceps tendon, bicep s brachii tendon and at the lateral epicondylar origin of the common extensor t endon wad.
== END 2024-08-17 07:42 | disposition home or self-care (01) ==
LOC: MICIMG 07:42
PROVIDERS: PCP Family Medicine; Visit Provider Orthopaedic Surgery
DX: M75.42 Impingement syndrome of left shoulder (principal); M75.102 Unspecified rotator cuff tear or rupture of left shoulder, not specified as traumatic
CPT/HCPCS: 73221

== ENCOUNTER 2024-12-08 07:32 | Outpatient (CLI) | payer OTHER, SELFPAY ==
--- NOTE | ~2024-12-08 | XR_ITS ---
Abdominal radiograph(s) INDICATION: Kidney stone COMPARISON: 12/19/2023 TECHNIQUE: 2 views supine abdomen FINDINGS: Lung bases clear. Scattered colonic gas and stool. Scattered small bowel gas. Left renal stones. Suspect small right renal stone. Pelvic phleboliths No acute bony abnormality. IMPRESSION: 1. Left renal stones. 2. Suspect small right renal stone. Reviewed, dictated and finalized at location [facility]
--- OUTSIDE RECORDS SUMMARY | 2024-12-08 07:35 | XMS_ITS | Clinical Summary ---
Author Organization [facility] Address [address] [place] [phone] Phone Care Team Providers Care V Belt Skiver Name Role Phone Bethany Evans MD Primary Care Provider +1- [phone] Allergies No known active allergies Medications escitalopram (LEXAPRO) 20 MG tablet Take 20 mg by mouth 1 (one) time each day Active hydroCHLOROthiaz karen (HYDRODIURIL) 25 MG tablet Take 1 tablet (25 mg total) by mouth 1 (one) time each day 30 tablet 11 12/28/2021 Active Active Problems Problem Noted Date Diagnosed Date Calculus of kidney 12/13/2021 Immunizations Immunization Administration Dates Next Due Influenza TIV (IM) [...] at Not on file Legal Sex Male 10:07 AM MDT Gender Identity Not on file Sexual Orientation [...] Health Maintenance Due Date Last Done Comments Influenza Vaccine (#1) 2024 11/21/2021, 2019 Insurance [employer] Care Teams V Belt Skiver Relationship Specialty Start Date End Date Bethany Evans MD [address] [facility] [address] [place] [id number] PCP - General Internal Medicine 11/09/21
--- OUTSIDE RECORDS SUMMARY | 2024-12-08 07:35 | XMS_ITS | Clinical Summary ---
Author Organization [facility] Address [address] [place] [id number] Care Team Providers Care Computer Information Science Professor Name Role Phone Bethany Evans MD Primary Care Provider [phone] Social History Tobacco Use Types Packs/Day Years [...] of 3 - 19+ 3-dose series) 1993 Pneumococcal Vaccine: 50+ Years (1 of 1 - PCV) 2024 Zoster Vaccines (1 of 2) 2024 COVID-19 Vaccine (5 - 2024- season) 2024 10/17/2021, 12/21/2020, 05/26/2020, Additional history exists Influenza Adult (#1) 2024 11/03/2020, 10/12/19 20 DTaP, Tdap and Td Vaccines (2 - Td or Tdap) 07/23/2030 07/23/2020 Hepatitis A Vaccines Aged Out No long er eligible based on patient's age to complete this topic Meningococcal B Vaccine Aged Out No l onger eligible based on patient's age to complete this topic Meningococcal Vaccine Aged Out No maryse ifeanyi eligible based on patient's age to complete this topic RSV Immunizations Under 20 Months Aged Out No longer eligible based on patient's age to complete this topic Insurance [employer] Member Subscriber Plan / Payer (Ef fective 2021-Present) Name:Sarath Thornton Relation to Subscriber:Self Name:Sarath Thornton Payer ID:Not on file Group ID:Not on file Type:Not on file Address: [facility] [id number] [place] [id number] Care Teams Computer Information Science Professor Relationship Specialty Start Date End Date Bethany Evans MD [address] [facility] [address] [place] [address] PCP - General FAMILY PRACTICE 11/14/21
--- OUTSIDE RECORDS SUMMARY | 2024-12-08 07:35 | XMS_ITS | Patient Health Record ---
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 Name Role Phone JuveBarbra prasad Primary Care Provider [phone] Jeffery Nayak Unavailable [phone] Reason For Referral No Information Medications Medication SIG (Take, Route, Fr equency, Duration) Notes Start Date End Date Status Multivitamin Adults - 1 tablet Orally Once a day 0 10/12/2019 Active CLA 1000 MG as directed Orally Once a day 10/12/19 20 Active Vitamin C 1000 MG 1 tablet Orally Once a day; Duration: 30 days 10/12/2019 Active Creatine - 1 scoop Orally Once a day 10/12/2019 Active Probiotic - 1 capsule Orally Once a day 10/12/2019 Active Immunizations Vaccine Route Administration Date Status Comme nts Tdap (Boostrix, Adacel) IM Intramuscular 07/23/2020 Admini stered MMR (M-M-R II) IM Intramuscular 07/23/2020 Administered Flulaval IM Intramuscular 10/12/2019 Administered Social History Tobacco Use: Social History Observation [...] disease ? No Medical Equipment Implanted Area Data Typist Type Device Identifier Model Se rial Comments Ronaldo titanium ronaldo in the left tibia Plan Of Treatment No Information Insurance Providers Payer Name Payer Address Payer Phone Subscriber Number Group Number Insured Name Patient Relationship to Insured Coverage Start Date Coverage End Date [employer] [facility] [address] [place] [address] [id number] Sarath Thornton Self - patient is the [...]
== END 2024-12-08 07:33 | disposition home or self-care (01) ==
PROVIDERS: PCP Family Medicine; Visit Provider Internal Medicine Nephrology
DX: N20.0 Calculus of kidney (principal)
CPT/HCPCS: 74018